=== PATIENT | male | born 1990 | race Hispanic/Latino ===

== ENCOUNTER 2022-04-24 19:20 | Emergency (ER) | payer SELFPAY ==
[2022-04-24] MEDS ORDERED: Lidocaine 1% PF 5 ML VIAL ONE (19:47)
[2022-04-24] MEDS ORDERED: Diazepam 5 MG TAB ONE (20:02)
== END 2022-04-24 20:46 | disposition home or self-care (01) ==
LOC: ERS 19:20
DX: L03.115 Cellulitis of right lower limb (principal)
CPT/HCPCS: 10060